=== PATIENT | female | born 1990 | race African-American/Black ===

== ENCOUNTER 2020-08-14 11:49 | Emergency (ER) | payer OTHER ==
[2020-08-14 11:57] VITALS: BP 125/78; PULSE 96; TEMP 98.5; BMI 24.2
== END 2020-08-14 13:16 | disposition home or self-care (01) ==
LOC: JERFT 11:49
PROC: 2W3CX1Z Immobilization of Right Lower Arm using Splint (ICD-10-PCS; principal; 2020-08-14)
DX: S62.336A Displaced fracture of neck of fifth metacarpal bone, right hand, initial encounter for closed fracture (principal)
CPT/HCPCS: 73130-TC-RT-FY; 99283-25

== ENCOUNTER 2024-04-02 07:50 | Inpatient (IN) | payer OTHER ==
[2024-04-02] MEDS: ELECTROLYTE-148 SOLN 1,000 ML IV SCH (08:55)
[2024-04-02 08:56] VITALS: BMI 28.0
[2024-04-02 09:07] LABS: BASO % 0.5 % (0-2.0); EOS % 1.7 % (0-4.5); HEMATOCRIT 31.3 % (32.4-45.2); HEMOGLOBIN 10.5 GM/dL (10.7-15.3); INR 0.99 (0.83-1.09); MCH 28.2 pg (25.7-33.7); MCHC 33.7 g/dl (32.0-36.0); MEAN CELL VOLUME 83.8 fl (80-96); MEAN PLT VOLUME 8.6 fl (7.5-11.1); MONO % 11.7 % (3.8-10.2); NEUT % 61.1 % (42.8-82.8); PLATELET COUNT 280 10^3/uL (134-434); PROTHROMBIN TIME (PATIENT) 11.2 SEC (9.7-13.0); RBC 3.73 M/mm3 (3.60-5.2); WHITE BLOOD COUNT 10.2 K/mm3 (4.0-10.0)
[2024-04-02 09:10] LABS: ACTIVATED PTT 29.1 SECONDS (25.2-36.5)
[2024-04-02] MEDS ORDERED: OXYTOCIN 30 UNITS in 0.9% NS 30 UNIT/500 ML INFUS.BAG IVPB ONE (09:13)
[2024-04-02 09:25] LABS: BLOOD UREA NITROGEN 7.8 mg/dL (7-18); CALCIUM 9.6 mg/dL (8.5-10.1); POTASSIUM 4.1 mmol/L (3.5-5.1)
[2024-04-02 09:29] LABS: CREATININE 0.8 mg/dL (0.55-1.3)
[2024-04-02] MEDS: OXYTOCIN 30 UNITS in 0.9% NS 30 UNIT/500 ML INFUS.BAG IVPB SCH (09:30)
[2024-04-02] MEDS ORDERED: AMPICILLIN SODIUM 2 GM VIAL ONE (11:08)
[2024-04-02] MEDS ORDERED: SODIUM CHLORIDE 100 ML IVPB ONE ×2 (11:08→15:10)
[2024-04-02] MEDS: AMPICILLIN - 2 GM in SODIUM CHLORIDE 100 ML IVPB ONE (11:29)
[2024-04-02] MEDS ORDERED: FENTANYL/BUPIVACAINE/NS/PF - PCEA - 50 ML DISP.SYRIN EP ONE (13:34)
[2024-04-02] MEDS: FENTANYL/BUPIVACAINE/NS/PF - PCEA - 50 ML DISP.SYRIN EP SCH (14:00)
[2024-04-02] MEDS ORDERED: NALOXONE HCL 0.4 MG/ML VIAL IVPUSH PRN (14:13)
[2024-04-02] MEDS ORDERED: AMPICILLIN SODIUM 1 GM VIAL ONE (15:10)
[2024-04-02] MEDS: AMPICILLIN - 1 GM in SODIUM CHLORIDE 100 ML IVPB SCH (15:17)
[2024-04-02] MEDS ORDERED: OXYTOCIN 20 UNITS in 0.9% NS 20 UNIT/1,000 ML INFUS.BAG IV ONE (18:47)
[2024-04-02] MEDS: OXYTOCIN 20 UNITS in 0.9% NS 20 UNIT/1,000 ML INFUS.BAG IV SCH (18:55)
[2024-04-02] MEDS ORDERED: BENZOCAINE 28 GM HEMORRHOIDAL OINTMENT TP PRN (19:36)
[2024-04-02] MEDS ORDERED: METHYLERGONOVINE MALEATE 0.2 MG/1 ML AMP IM PRN (19:36)
[2024-04-02] MEDS ORDERED: WITCH HAZEL 50% (TUCKS) 40 PAD/JAR PAD TP PRN (19:36)
[2024-04-02] MEDS ORDERED: BISACODYL 10 MG SUPP.RECT RC PRN (19:36)
[2024-04-02] MEDS ORDERED: BENZOCAINE 20% 57 GM BOTTLE TP PRN (19:36)
[2024-04-02] MEDS ORDERED: oxyCODONE HCL 5 MG TABLET ONE (21:01)
[2024-04-02] MEDS: oxyCODONE HCL 5 MG TABLET PO PRN (21:02)
[2024-04-02] MEDS: IBUPROFEN 600 MG TABLET (FP) PO PRN (22:20)
[2024-04-03] MEDS ORDERED: BENZOCAINE 20% 57 GM BOTTLE TP PRN (00:17)
[2024-04-03] MEDS ORDERED: BENZOCAINE 28 GM HEMORRHOIDAL OINTMENT TP PRN (00:17)
[2024-04-03] MEDS ORDERED: oxyCODONE HCL 5 MG TABLET PO PRN (00:17)
[2024-04-03] MEDS ORDERED: WITCH HAZEL 50% (TUCKS) 40 PAD/JAR PAD TP PRN (00:17)
[2024-04-03] MEDS ORDERED: BISACODYL 10 MG SUPP.RECT RC PRN (00:17)
[2024-04-03] MEDS: oxyCODONE HCL 5 MG TABLET PO ONE (00:28)
[2024-04-03] MEDS: ACETAMINOPHEN 325 MG TABLET (FP) PO PRN (00:29)
[2024-04-03] MEDS: ACETAMINOPHEN/CAFFEINE/BUTALBITAL 1 TAB PO ONE (08:23)
[2024-04-03 08:33] LABS: BASO % 0.2 % (0-2.0); EOS % 0.6 % (0-4.5); HEMATOCRIT 32.3 % (32.4-45.2); HEMOGLOBIN 10.9 GM/dL (10.7-15.3); LYMPH % 17.4 % (8-40); MCH 28.1 pg (25.7-33.7); MCHC 33.7 g/dl (32.0-36.0); MEAN CELL VOLUME 83.3 fl (80-96); MEAN PLT VOLUME 8.7 fl (7.5-11.1); MONO % 9.4 % (3.8-10.2); NEUT % 72.4 % (42.8-82.8); PLATELET COUNT 273 10^3/uL (134-434); RBC 3.87 M/mm3 (3.60-5.2); RDW 14.8 % (11.6-15.6); WHITE BLOOD COUNT 13.2 K/mm3 (4.0-10.0)
[2024-04-03] MEDS: CYCLOBENZAPRINE HCL 5 MG TABLET PO ONE (08:41)
[2024-04-03] MEDS ORDERED: CYCLOBENZAPRINE HCL 5 MG TABLET PO PRN (10:45)
[2024-04-03] MEDS: GABAPENTIN 300 MG CAPSULE PO SCH (12:28)
[2024-04-03] MEDS: ACETAMINOPHEN 1000 MG/100 ML BAG IVPB PRN (13:01)
[2024-04-03] MEDS: KETOROLAC TROMETHAMINE 15 MG/ML VIAL IVPUSH PRN (16:22)
[2024-04-03] MEDS ORDERED: SENNOSIDES/DOCUSATE COMBO (SENNA PLUS) TABLET (UD) PO PRN (22:00)
[2024-04-04] MEDS: KETOROLAC TROMETHAMINE 30 MG/1 ML VIAL IVPUSH ONE (08:27)
[2024-04-04 09:35] VITALS: TEMP 98
[2024-04-04 15:52] VITALS: BP 127/82; PULSE 66; RESP 16
== END 2024-04-04 16:00 | disposition home or self-care (01) | DRG 560 ==
LOC: JLDR 07:50 → J3W 22:07
PROVIDERS: ADMIT Specialist; ATTEND Specialist
PROC: 10E0XZZ Delivery of Products of Conception, External Approach (ICD-10-PCS; principal; 2024-04-02)
PROC: 3E0334Z Introduction of Serum, Toxoid and Vaccine into Peripheral Vein, Percutaneous Approach (ICD-10-PCS; 2024-04-03)
DX: O36.5930 Maternal care for other known or suspected poor fetal growth, third trimester, not applicable or unspecified (principal); O99.820 Streptococcus B carrier state complicating pregnancy; Z3A.38 38 weeks gestation of pregnancy; O26.893 Other specified pregnancy related conditions, third trimester; M62.830 Muscle spasm of back; O36.0930 Maternal care for other rhesus isoimmunization, third trimester, not applicable or unspecified; Z37.0 Single live birth
CPT/HCPCS: 36415; 59409; 80048; 85025; 85461; 85610; 85730; 86780; 86850; 86900; 86901; 96372; J0131; J2790